=== PATIENT | male | born 1990 | race American Indian/Alaskan Native ===

== ENCOUNTER 2017-08-07 21:16 | Emergency (ER) | payer SELFPAY ==
[2017-08-07 23:07] LABS: Basophils % (Auto) 1.3 % (0.0-1.8); Hematocrit 45.2 % (35.5-45.6); Hemoglobin 14.3 gm/dl (11.8-15.2); Mean Corpuscular HGB Conc 32 % (32-34); Mean Corpuscular Volume 77 fl (84-94); Platelet Count 195 K/mm3 (140-440); Red Blood Count 5.88 M/mm3 (3.65-5.03); Red Cell Distribution Width 14.2 % (13.2-15.2); White Blood Count 5.9 K/mm3 (4.5-11.0)
[2017-08-07 23:07] LABS: Bacteria,Urine 1+ /HPF (Negative); Bilirubin,Urine NEG (Negative); Blood,Urine NEG (Negative); Ketones,Urine NEG (Negative); Leukocyte Esterase,Urine NEG (Negative); Mucus,Urine FEW /HPF; Nitrite,Urine POS (Negative); Protein,Urine <15 mg/dL mg/dL (Negative)
[2017-08-07 23:09] LABS: Mean Corpuscular Hemoglobin 24 pg (28-32)
[2017-08-07 23:24] LABS: Alanine Aminotransferase 28 units/L (7-56); Albumin 4.5 g/dL (3.9-5); Albumin/Globulin Ratio 1.5 %; Alkaline Phosphatase 74 units/L (35-129); Anion Gap 16 mmol/L; BUN/Creatinine Ratio 16; Blood Urea Nitrogen 14 mg/dL (9-20); Calcium 9.5 mg/dL (8.4-10.2); Carbon Dioxide 26 mmol/L (22-30); Chloride 100.2 mmol/L (98-107); Glucose 102 mg/dL (75-100); Lipase 31 units/L (13-60); Potassium 4.2 mmol/L (3.6-5.0); Sodium 138 mmol/L (137-145); Total Protein 7.5 g/dL (6.3-8.2)
[2017-08-08] MEDS ORDERED: XYLOCAINE 1% MPF 5 mL INFILTRATI ONE (01:37)
[2017-08-08] MEDS ORDERED: ZITHROMAX PO ONE ×2 (01:37→02:11)
[2017-08-08] MEDS ORDERED: ROCEPHIN IM ONE (01:37)
[2017-08-08] MEDS ORDERED: FLAGYL PO ONE (01:37)
--- NOTE | 2017-08-08 01:42 | Emergency Department Report ---
ED Male HPI - General Chief complaint: Abdominal Pain Stated complaint: ABDOMINAL PAIN, PAINFUL URINATION Time Seen by Provider: 08/08/17 01:24 Source: patient Mode of arrival: Ambulatory Limitations: No Limitations - History of Present Illness Initial comments: 27-year-old male with a past medical history of hypertension presents to the hospital complaining of dysuria 2 days. No penile discharge reported. Patient has aching suprapubic and bilateral flank pain intermittent. No aggravating or alleviating factors reported. Patient reports intermittent hematuria. No nausea, vomiting, or fever. Patient states the active with 2 partners and uses a condom with one of them. - Related Data Previous Rx's Medication Instructions Recorded Last Taken Type Cyclobenzaprine [Flexeril] 10 mg PO TID PRN #30 tablet 03/18/16 Unknown Rx Ibuprofen [Motrin 600 MG tab] 600 mg PO Q8H PRN #30 tablet 08/08/17 Unknown Rx Sulfamethoxazole/Trimethoprim 1 each PO BID #10 tablet 08/08/17 Unknown Rx [Bactrim DS TAB] traMADol [Ultram 50 MG tab] 50 mg PO Q6HR PRN #20 tablet 08/08/17 Unknown Rx Allergies Allergy/AdvReac Type Severity Reaction Status Date / Time No Known Allergies Allergy Unverified 03/18/16 00:31 ED Review of Systems ROS: Stated complaint: ABDOMINAL PAIN, PAINFUL URINATION Other details as noted in HPI Comment: All other systems reviewed and negative Other: Constitutional: No fevers chills Eyes: No eye pain visual changes ENT: No ear pain or throat pain Neck: Denies pain Respiratory: Denies cough wheezing shortness of breath Cardiovascular: Denies chest pain, palpitations, syncope GI: Denies nausea, vomiting, diarrhea : As per HPI Musculoskeletal: Bilateral flank Skin: Denies rash, lesions, erythema Neurologic: Denies headache, numbness, weakness Psychiatric: Denies suicidal ideation, hallucinations ED Past Medical Hx - Past Medical History Hx Heart Attack/AMI: Yes - Surgical History Past Surgical History?: No - Social History Smoking Status: Never Smoker Substance Use Type: None - Medications Home Medications: Home Medications Medication Instructions Recorded Confirmed Last Taken Type Cyclobenzaprine [Flexeril] 10 mg PO TID PRN #30 tablet 03/18/16 Unknown Rx Ibuprofen [Motrin 600 MG tab] 600 mg PO Q8H PRN #30 tablet 08/08/17 Unknown Rx Sulfamethoxazole/Trimethoprim 1 each PO BID #10 tablet 08/08/17 Unknown Rx [Bactrim DS TAB] traMADol [Ultram 50 MG tab] 50 mg PO Q6HR PRN #20 tablet 08/08/17 Unknown Rx ED Physical Exam - General Limitations: No Limitations - Other Other exam information: General: No limitations, patient is alert in no acute distress Head exam: Atraumatic, normocephalic Eyes exam: Normal appearance ENT: Moist mucous membrane, normal oropharynx Neck exam: Normal inspection, full range of motion, no meningismus nontender Respiratory exam: Clear to auscultation bilateral, no wheezes, rales, crackles Cardiovascular: Normal rate and rhythm, normal heart sounds Abdomen: Soft, nondistended, mild suprapubic tenderness, with normal bowel sounds, no rebound, or guarding : Circumcised, no penile discharge or lesions, no epididymal or testicular tenderness. Bilateral tender inguinal lymphadenopathy Extremity: Full range of motion normal inspection no deformity Back: Normal Inspection, full range of motion, mild left-sided neck tenderness Neurologic: Alert, oriented x3, cranial nerves intact, no motor or sensory deficit Psychiatric: normal affect, normal mood Skin: Warm, dry, intact ED Course Vital Signs 08/07/17 08/08/17 22:28 01:02 Temperature 98 F Pulse Rate 76 69 Respiratory 18 16 Rate Blood Pressure 121/67 141/73 O2 Sat by Pulse 100 100 Oximetry - Reevaluation(s) Reevaluation #1: 08/08/17 01:41 Meds ordered, azithromycin, Rocephin, and azithromycin 2 g Flagyl to treat for gonorrhea, Chlamydia, and Trichomonas ED Medical Decision Making - Lab Data Result diagrams: 08/07/17 22:48 08/07/17 22:48 Lab Results 08/07/17 08/07/17 08/07/17 Range/Units 22:44 22:48 22:48 WBC 5.9 (4.5-11.0) K/mm3 RBC 5.88 H (3.65-5.03) M/mm3 Hgb 14.3 (11.8-15.2) gm/dl Hct 45.2 (35.5-45.6) % MCV 77 L (84-94) fl MCH 24 L (28-32) pg MCHC 32 (32-34) % RDW 14.2 (13.2-15.2) % Plt Count 195 (140-440) K/mm3 Lymph % (Auto) 28.9 (13.4-35.0) % [place] % (Auto) 8.9 H (0.0-7.3) % Eos % (Auto) 3.0 (0.0-4.3) % Baso % (Auto) 1.3 (0.0-1.8) % Lymph # 1.7 (1.2-5.4) K/mm3 [place] # 0.5 (0.0-0.8) K/mm3 Eos # 0.2 (0.0-0.4) K/mm3 Baso # 0.1 (0.0-0.1) K/mm3 Seg Neutrophils % 57.9 (40.0-70.0) % Seg Neutrophils # 3.4 (1.8-7.7) K/mm3 Sodium 138 (137-145) mmol/L Potassium 4.2 (3.6-5.0) mmol/L Chloride 100.2 (98-107) mmol/L Carbon Dioxide 26 (22-30) mmol/L Anion Gap 16 mmol/L BUN 14 (9-20) mg/dL Creatinine 0.9 (0.8-1.5) mg/dL Estimated GFR > 60 ml/min BUN/Creatinine Ratio 16 % Glucose 102 H (75-100) mg/dL Calcium 9.5 (8.4-10.2) mg/dL Total Bilirubin 0.30 (0.1-1.2) mg/dL AST 22 (5-40) units/L ALT 28 (7-56) units/L Alkaline Phosphatase 74 (35-129) units/L Total Protein 7.5 (6.3-8.2) g/dL Albumin 4.5 (3.9-5) g/dL Albumin/Globulin Ratio 1.5 % Lipase 31 (13-60) units/L Urine Color Kalie (Yellow) Urine Turbidity Clear (Clear) Urine pH 5.0 (5.0-7.0) Ur Specific [place] 1.024 (1.003-1.030) Urine Protein <15 mg/dl (Negative) mg/dL Urine Glucose (UA) Neg (Negative) mg/dL Urine Ketones Neg (Negative) mg/dL Urine Blood Neg (Negative) Urine Nitrite Pos (Negative) Urine Bilirubin Neg (Negative) Urine Urobilinogen 4.0 (<2.0) mg/dL Ur Leukocyte Esterase Neg (Negative) Urine WBC (Auto) 1.0 (0.0-6.0) /HPF Urine RBC (Auto) 1.0 (0.0-6.0) /HPF Urine Bacteria (Auto) 1+ (Negative) /HPF Urine Mucus Few /HPF - Differential Diagnosis urethritis, UTI, renal colic Critical Care Time: No Critical care attestation.: If time is entered above; I have spent that time in minutes in the direct care of this critically ill patient, excluding procedure time. ED Disposition Clinical Impression: Urethritis Disposition: - TO HOME OR SELFCARE Is pt being admited?: No Condition: Stable Instructions: Nonspecific Urethritis in Men (ED) Additional Instructions: Take the medication as prescribed.Your gonorrhea and chlamydia tests are pending and take approximately 3-4 days result. You may obtain results in medical records with a photo ID. You may also obtain results through the follow -up doctor office via medical record request. Return if symptoms worsen. Your sexual partners may need to be treated as well Today you received treatment in the ER for gonorrhea, Chlamydia, and Trichomonas. Antibiotics were prescribed for urinary tract infection Prescriptions: Ibuprofen [Motrin 600 MG tab] 600 mg PO Q8H PRN #30 tablet PRN Reason: Pain Sulfamethoxazole/Trimethoprim [Bactrim DS TAB] 1 each PO BID #10 tablet traMADol [Ultram 50 MG tab] 50 mg PO Q6HR PRN #20 tablet PRN Reason: Pain Referrals: RICARDA LAFLEUR MD [Primary Care Provider] - 3-5 Days [facility] [Provider Group] - 3-5 Days MATT RUBY MD [Staff Physician] - 3-5 Days Forms: STI Treatment and Prevention Time of Disposition: 02:38
[2017-08-08] MEDS ORDERED: ULTRAM PO ONE (02:15)
[2017-08-08] MEDS ORDERED: MOTRIN PO ONE (02:15)
[2017-08-08 03:14] VITALS: BP 108/64
== END 2017-08-08 03:00 | disposition home or self-care (01) ==
LOC: ED 21:16
DX: N34.2 Other urethritis (principal); I25.2 Old myocardial infarction
CPT/HCPCS: 36415; 80053; 81001; 83690; 85025; 87086; 87591; 96372; 99283; J0696